=== PATIENT | female | born 1990 | race Caucasian/White ===

== ENCOUNTER 2017-01-25 07:45 | Day surgery (SDC) | payer OTHER ==
[2017-01-25 08:34] LABS: HEMATOCRIT 40.2 % (36.0-47.0); HEMOGLOBIN 13.8 g/dL (12.0-15.5); HGB HCT DIFFERENCE 1.2; MEAN CORPUSCULAR HEMOGLOBIN 30.7 pg (27.0-33.4); MEAN CORPUSCULAR HGB CONC 34.2 g/dL (32.0-36.0); MEAN CORPUSCULAR VOLUME 90 fl (80-97); RED BLOOD COUNT 4.48 10^6/uL (3.72-5.28); RED CELL DISTRIBUTION WIDTH 13.2 % (11.5-14.0); WHITE BLOOD COUNT 8.7 10^3/uL (4.0-10.5)
[2017-01-25] MEDS ORDERED: ONDANSETRON HCL INJ/PF 4 MG/2 ML SDV ONE (09:13)
[2017-01-25] MEDS ORDERED: NALOXONE HCL INJ/PF 0.4 MG/1 ML SDV ONE (09:13)
[2017-01-25] MEDS ORDERED: FLUMAZENIL INJ 0.5 MG/5 ML VIAL IV ONE (09:14)
[2017-01-25] MEDS ORDERED: EPINEPHRINE INJ 1 MG/10 ML DISP.SYRIN ONE (09:14)
[2017-01-25] MEDS ORDERED: PROMETHAZINE HCL INJ 25 MG/1 ML VIAL ONE (09:14)
[2017-01-25] MEDS ORDERED: GLUCAGON,HUMAN RECOMB 1 MG INJ ONE (09:14)
[2017-01-25] MEDS: MIDAZOLAM 2 MG/2 ML INJ ONE ×4 (09:30→09:45)
[2017-01-25] MEDS: FENTANYL CITRATE INJ/PF 100 MCG/2 ML AMPUL ONE ×2 (09:32→09:43)
--- NOTE | 2017-01-25 10:38 | PDOC DISCHARGE SUMMARY ---
Discharge Summary (SDC) - Discharge Final Diagnosis: Internal hemorrhoids Date of Surgery: 01/25/17 Discharge Date: 01/25/17 Condition: Good Treatment or Instructions: Colonoscopy and anoscopy with hemorrhoidal banding 2. February discharge the patient home when met discharge criteria. Follow-up with me in 2 weeks. Stay active but avoid strenuous activity. Prescriptions: Docusate Sodium [Colace 100 mg Capsule] 100 mg PO BID #60 capsule Oxycodone HCl/Acetaminophen [Percocet 5-325 mg Tablet] 1 - 2 tab PO ASDIR PRN # 25 tablet PRN Reason: Discharge Diet: As Tolerated Discharge Activity: Activity As Tolerated - Stay active but avoid strenuous activity. Report the Following to Your Physician Immediately: Fever over 101 Degrees, Unusual Bleeding - Normal to have small amounts of bleeding., Drainage-Foul Smelling Other Items to Report to MD: inability to urinate, severe increase in pain.
[2017-01-25 11:21] VITALS: BP 102/64
--- NOTE | 2017-01-25 11:41 | Operative Report ---
Operative Report DATE OF SURGERY: 01/25/17 PREOPERATIVE DIAGNOSIS: Blood per rectum POSTOPERATIVE DIAGNOSIS: Internal hemorrhoids OPERATION: Colonoscopy, anoscopy with hemorrhoidal banding 2 SURGEON: NORA CURRY ANESTHESIA: Moderate Sedation TISSUE REMOVED OR ALTERED: Hemorrhoids banded COMPLICATIONS: None ESTIMATED BLOOD LOSS: none INTRAOPERATIVE FINDINGS: Mildly enlarged Right posterior and left lateral internal hemorrhoidal complexes. Normal colon PROCEDURE: Informed consent was obtained. Patient was brought to the endoscopy suite. IV sedation with Versed and fentanyl was administered. Digital rectal exam revealed no palpable perianal masses. Endoscope was passed via the patient's anus it was fed to the cecum. Patient's the sigmoid colon was markedly redundant making the procedure difficult however adequate visualization was obtained. Bowel prep was good. The cecum, right colon, transverse colon, descending colon, sigmoid colon, and the rectum were all normal with no polyps no masses no diverticuli. Anoscopy was performed it demonstrated the mildly prominent right posterior and left lateral internal hemorrhoidal complexes. These 2 complexes were banded with the suction banding device taking great care to place the bands above the level of the dentate line. Patient tolerated the procedure well with the only mild discomfort. The right anterior hemorrhoidal complex was too flat to be banded. Assessment: Internal hemorrhoids status post successful banding 2. Will plan to follow-up with her in a couple weeks.
== END 2017-01-25 11:25 | disposition home or self-care (01) ==
LOC: END 07:45
PROVIDERS: ATTEND Surgery
PROC: 06LY0CC Occlusion of Hemorrhoidal Plexus with Extraluminal Device, Open Approach (ICD-10-PCS; principal; 2017-01-25 09:00)
PROC: 0DJD8ZZ Inspection of Lower Intestinal Tract, Via Natural or Artificial Opening Endoscopic (ICD-10-PCS; 2017-01-25 09:00)
DX: K64.8 Other hemorrhoids (principal); K62.5 Hemorrhage of anus and rectum; I05.9 Rheumatic mitral valve disease, unspecified; Z79.899 Other long term (current) drug therapy
CPT/HCPCS: 45378; 46221; 36415; 84703; 85027; J2250; J3010; J2405; J0171; J1610; J2310; J2550; J3490